=== PATIENT | male | born 1950 | race Caucasian/White ===

== ENCOUNTER 2018-05-30 09:34 | Day surgery (SDC) | payer MEDICARE ==
[~2018-05-30 09:34] MED LIST: Midazolam 1 MG/ML 2 ML SDV ONE; Propofol 200 MG/20 ML SDV ONE; fentaNYL 100 MCG/2 ML SDV ONE
[2018-05-30] MEDS ORDERED: Lactated Ringers 1,000 ML IV SCH ×2 (10:00→13:00)
--- NOTE | 2018-05-30 11:10 | PCM.PREANE ---
Preanesthetic Assessment - Anesthesia/Transfusion/Family Hx Anesthesia History: No Prior Anesthesia Family History of Anesthesia Reaction: No Transfusion History: No Prior Transfusion(s) - Review of Systems General: No Symptoms Pulmonary: No Symptoms Cardiovascular: No Symptoms Gastrointestinal: No Symptoms Neurological: No Symptoms Other: Reports: None - Physical Assessment NPO Status Date: 05/29/18 O2 Sat by Pulse Oximetry: 95 Respiratory Rate: 16 Vital Signs: Last Vital Signs Temp 97.7 F 05/30/18 09:59 Pulse 94 05/30/18 09:59 Resp 16 05/30/18 09:59 BP 183/99 H 05/30/18 09:59 Pulse Ox 95 05/30/18 09:59 Height: 5 ft 8 in Weight: 95.708 kg ASA Class: 2 Mental Status: Alert & Oriented x3 Airway Class: Mallampati = 2 Dentition: Reports: Normal Dentition ROM/Head Extension: Full Lungs: Clear to Auscultation, Normal Respiratory Effort Cardiovascular: Regular Rate, Regular Rhythm - Allergies Allergies/Adverse Reactions: Allergies Allergy/AdvReac Type Severity Reaction Status Date / Time benztropine [From Cogentin] Allergy Seizure Verified 05/27/18 16:55 - Blood Blood Available: No - Anesthesia Plan Pre-Op Medication Ordered: None - Acknowledgements Anesthesia Type Planned: MAC Pt an Appropriate Candidate for the Planned Anesthesia: Yes Alternatives and Risks of Anesthesia Discussed w Pt/Guardian: Yes Pt/Guardian Understands and Agrees with Anesthesia Plan: Yes Additional Comments: PMH: unknown psychiatric disorder- on haldol and quetiapine, smoker PLAN: mac/tiva PreAnesthesia Questionnaire HEENT History: Reports: Other (See Below) Other HEENT History: uses reading glasses Cardiovascular History: Reports: Hypertension Gastrointestinal History: Reports: Hemorrhoids, Other (See Below) Other Gastrointestinal History: occasional heartburn Musculoskeletal History: Reports: Fracture Other Musculoskeletal History: hx of fx wrist as a child Neurological History: Reports: Seizure Other Neuro History: hx of one seizure at age 29- from medication (Cogentin) Psychiatric History: Reports: Depression Endocrine/Metabolic History: Reports: Obesity/BMI 30+ - SUBSTANCE USE Smoking Status *Q: Current Every Day Smoker Tobacco Use Within Last Twelve Months: Cigarettes Recreational Drug Use History: No - HOME MEDS Home Medications: Home Meds FLUoxetine [PROzac] 60 mg PO BEDTIME 01/14/15 [History] Haloperidol 2.5 mg PO BEDTIME 01/14/15 [History] QUEtiapine [SEROquel] 300 mg PO BEDTIME 01/14/15 [History] Hydrocortisone [Proctosol-HC] 1 applic TOP BID PRN 05/27/18 [History] Propranolol HCl 20 mg PO BEDTIME 05/27/18 [History] - CURRENT (IN HOUSE) MEDS Current Meds: Current Medications Lactated Ringer's (Ringers, Lactated) 1,000 mls @ 125 mls/hr IV ASDIRECTED SHANA Last Admin: 05/30/18 10:03 Dose: 125 mls/hr Discontinued Medications Fentanyl (Sublimaze) Confirm Administered Dose 100 mcg .ROUTE .STK-MED ONE Stop: 05/30/18 07:13 Lidocaine HCl (Xylocaine-Mpf 1%) Confirm Administered Dose 5 mls @ as directed .ROUTE .STK-MED ONE Stop: 05/30/18 07:13 Midazolam HCl (Versed 1 Mg/Ml) Confirm Administered Dose 2 mg .ROUTE .STK-MED ONE Stop: 05/30/18 07:13 Propofol (Diprivan 20 Ml) Confirm Administered Dose 200 mg .ROUTE .STK-MED ONE Stop: 05/30/18 07:13
[2018-05-30] MEDS ORDERED: Propofol 200 MG/20 ML SDV ONE (12:25)
--- NOTE | 2018-05-30 12:49 | PCM.OPNOTE ---
- General Post-Op/Procedure Note Date of Surgery/Procedure: 05/30/18 Operative Procedure(s): Colonoscopy with multiple cold polypectomies from the transverse colon, proximal transverse sigmoid colon, distal sigmoid colon and rectum. Pre Op Diagnosis: Intermittent rectal bleeding. Post-Op Diagnosis: Transverse colon, proximal and distal sigmoid and rectal polyps. Sigmoid diverticulosis. Anesthesia Technique: MAC (ASA II) Primary Surgeon: Mal Ibrahim Condition: Good Free Text/Narrative:: DICTATION [id number] CPT CODE 01389
--- NOTE | 2018-05-30 13:06 | PCM.POSTAN ---
POST ANESTHESIA ASSESSMENT - MENTAL STATUS Mental Status: Alert, Oriented - RESPIRATORY Respiratory Status: Respiratory Rate WNL, Airway Patent, O2 Saturation Stable - CARDIOVASCULAR CV Status: Pulse Rate WNL, Blood Pressure Stable - GASTROINTESTINAL GI Status: No Symptoms - POST OP HYDRATION Hydration Status: Adequate & Stable
--- NOTE | 2018-05-30 13:07 | PCM48HPAN ---
Post Anesthesia Note - EVALUATION WITHIN 48HRS OF ANESTHETIC Vital Signs in Normal Range: Yes Patient Participated in Evaluation: Yes Respiratory Function Stable: Yes Airway Patent: Yes Cardiovascular Function Stable: Yes Hydration Status Stable: Yes Pain Control Satisfactory: Yes Nausea and Vomiting Control Satisfactory: Yes Mental Status Recovered: Yes Resp Rate: 18
[2018-05-30 13:27] VITALS: BP 137/72
--- NOTE | 2018-05-30 16:21 | OR ---
SURGEON: Mal Ibrahim M.D. DATE OF PROCEDURE: 05/30/2018 OPERATION PERFORMED: Colonoscopy with multiple cold polypectomies from the transverse colon, sigmoid colon, and rectum. PREOPERATIVE DIAGNOSIS: Rectal bleeding. POSTOPERATIVE DIAGNOSES: 1. Transverse colon polyp. 2. Proximal sigmoid polyp. 3. Distal sigmoid polyp. 4. Rectal polyp. 5. Sigmoid diverticulosis. DESCRIPTION OF PROCEDURE: The patient was taken to the endoscopy room and positioned on the endoscopy table in the left lateral decubitus position. Time-out was called for appropriate identification of the patient and procedure. Monitored anesthesia care was provided. The colonoscope was inserted into the rectum and advanced with minimal difficulty to the cecum where the colonoscope was retroflexed to visualize the ascending colon from below. The colonoscope was then straightened and slowly withdrawn. The cecum, ascending colon, hepatic flexure, proximal and mid transverse colon showed no tumors, polyps, diverticula, or angiodysplastic changes. Polyps were encountered in the distal transverse colon and removed with the cold biopsy forceps. No polyps were seen at the splenic flexure or in the descending colon. As the colonoscope was withdrawn to the sigmoid colon, 1 polyp was encountered proximally and a second polyp was encountered distally. These were removed with cold biopsy forceps. Diverticular changes were noted primarily in the sigmoid colon. Once the colonoscope was withdrawn to the rectum, another polyp was encountered and likewise removed with the cold biopsy forceps. The colonoscope was then retroflexed to visualize the anal orifice from above. No tumors or polyps were seen and there were no acute hemorrhoidal changes. The colonoscope was then straightened, the rectum aspirated, and the colonoscope removed. The patient tolerated the procedure well and was taken to recovery room in stable condition. DEBBY / RON /[id number]
== END 2018-05-30 13:25 | disposition home or self-care (01) ==
LOC: MW.SDS 09:34
PROVIDERS: ATTEND Surgery
DX: K62.5 Hemorrhage of anus and rectum (principal); D12.5 Benign neoplasm of sigmoid colon; D12.3 Benign neoplasm of transverse colon; D12.8 Benign neoplasm of rectum; K57.30 Diverticulosis of large intestine without perforation or abscess without bleeding; I10 Essential (primary) hypertension; F17.210 Nicotine dependence, cigarettes, uncomplicated; F32.9 Major depressive disorder, single episode, unspecified; Z88.8 Allergy status to other drugs, medicaments and biological substances; Z79.899 Other long term (current) drug therapy
CPT/HCPCS: 45380; J2001; J2250; J2704; J3010; J7120; 88305